=== PATIENT | male | born 1995 | race Caucasian/White ===

== ENCOUNTER 2016-06-12 13:16 | Emergency (ER) | payer OTHER ==
[~2016-06-12] VITALS: Ht 165.1 cm; Wt 77.1 kg
--- NOTE | 2016-06-12 13:25 | NUR ---
dr jarrell at the bedside for eval and exam.
[2016-06-12] MEDS ORDERED: TETRACAINE HCL 0.5% OPHT DROP 2 ML BOTTLE OP ONE (13:30)
[2016-06-12] MEDS ORDERED: TETRACAINE HCL 0.5% OPHT DROP 2 ML BOTTLE ONE (13:36)
[2016-06-12] MEDS ORDERED: FLUORESCEIN SODIUM 1 MG STRIP ONE (13:41)
--- NOTE | 2016-06-12 15:05 | NUR ---
DR CHÁVEZ SPOKE W/ ER MD AT [facility] RE PT'S EYE CONDITION.
[2016-06-12 15:11] VITALS: BP 112/86
--- NOTE | 2016-06-12 15:12 | NUR ---
Patient discharged to home in stable conditon. Written and verbal after care instructions given. Patient verbalizes understanding of instructions.
== END 2016-06-12 15:13 | disposition home or self-care (01) ==
LOC: ER 13:21
DX: H57.11 Ocular pain, right eye (principal)
CPT/HCPCS: A4663; J7040

== ENCOUNTER 2021-03-06 16:45 | Emergency (ER) | payer OTHER ==
[~2021-03-06] VITALS: Ht 172.7 cm; Wt 82.6 kg
--- NOTE | 2021-03-06 16:58 | NUR ---
Dr Lewis at the [facility] for MSE.
[2021-03-06 17:26] LABS: HEMATOCRIT 43.7 % (36.7-47.1); MEAN CORPUSCULAR VOLUME 83.4 fL (73.0-96.2); PLATELET COUNT (AUTO) 261 K/uL (152-348)
[2021-03-06 17:30] LABS: CREATININE 0.8 mg/dL (0.6-1.3); POTASSIUM 3.7 mmol/L (3.5-5.1)
[2021-03-06 17:36] LABS: BILIRUBIN,DIRECT 0.1 mg/dL (0.0-0.2); BILIRUBIN,TOTAL 0.5 mg/dL (0.2-1.0); TOTAL PROTEIN, SERUM 7.6 g/dL (6.4-8.2)
--- NOTE | 2021-03-06 19:00 | NUR ---
RECEIVED REPORT FROM PEÑA PEREZ. PT NOTED TO BE IN BED, NO SOB OR LABORED BREATHING, A/O X4, DENIES ANY PAIN/DISCOMFORT. MOTHER AT BEDSIDE.
--- NOTE | 2021-03-06 19:12 | NUR ---
Patient discharged to home in stable condition. Written and verbal after care instructions given. Patient verbalizes understanding of instructions. Stressed follow up or return to ER for worsening s/s. Steady gait. Accompanied by mother. No n/v/d.
[2021-03-06 19:24] VITALS: BP 126/82
== END 2021-03-06 19:20 | disposition home or self-care (01) ==
LOC: ER 16:47
DX: K62.5 Hemorrhage of anus and rectum (principal); Z90.49 Acquired absence of other specified parts of digestive tract
CPT/HCPCS: 36415; 85025; A4663